=== PATIENT | female | born 1990 | race African-American/Black ===

== ENCOUNTER 2018-09-06 20:05 | Emergency (ER) | payer BC, MEDICAID ==
[~2018-09-06] VITALS: Ht 170.2 cm; Wt 122.9 kg
[~2018-09-06 20:05] MED LIST: IBUPROFEN600 MG PO; NKM; VICODIN ES 7.51 EAC1 ORAL
[2018-09-06 20:30] VITALS: BP 122/85
--- NOTE | 2018-09-06 20:52 | Emergency Room Report ---
History of Present Illness General Chief Complaint: Abdominal Pain Source: Patient Present Illness [facility] Ms. Cordero is a 28-year-old female with history of PTSD who presents with 1 week of intermittent generalized abdominal pain. She has crampy abdominal pain with tightening feeling every 2 hours. Associated with diarrhea. Positive nausea. No fever. No previous history of IBS or peptic ulcer disease. No new foods No sick contacts. Gradual onset of symptoms. She also felt a knot in the right flank right mid axillary region. Tender to touch. Last menstrual period in July Allergies: Coded Allergies: No Known Allergies (Unverified , 08/09/13) Patient History Past Medical History: see triage record Past Surgical History: Social History: Denies: smoking, drug use Last Menstrual Period: aug 22 Now: No Reviewed Nursing Documentation: PMH: Agreed; PSxH: Agreed Nursing Documentation-PMH Past Medical History: No Stated History History Of Psychiatric Problem: Yes - anxiety, deprassion, ptsd Review of Systems Constitutional: Denies: fever, malaise Respiratory: Denies: cough Cardiovascular: Denies: chest pain Gastrointestinal: Reports: abdominal pain, diarrhea, nausea All Other Systems: negative except mentioned in HPI Physical Exam Vital Signs Date Time Temp Pulse Resp B/P (MAP) Pulse Ox O2 Delivery O2 Flow Rate FiO2 09/06/18 20:17 98.8 78 16 120/87 96 Room Air Sp02 EP Interpretation: reviewed, normal General Appearance: no apparent distress, alert, GCS 15, non-toxic Head: normocephalic, atraumatic Eyes: bilateral eye normal inspection, bilateral eye PERRL ENT: hearing grossly normal, normal pharynx, no angioedema, normal voice Neck: full range of motion, supple/symm/no masses Respiratory: chest non-tender, lungs clear, normal breath sounds, speaking full sentences Cardiovascular #1: regular rate, rhythm, no edema Gastrointestinal: normal bowel sounds, non tender, soft, non-distended, no guarding, no rebound Genitourinary: normal inspection, no CVA tenderness Musculoskeletal: back normal, gait/station normal, normal range of motion, non- tender Neurologic: alert, oriented x3, responsive, motor strength/tone normal, sensory intact, speech normal Psychiatric: judgement/insight normal, memory normal, mood/affect normal, no suicidal/homicidal ideation Skin: normal color, no rash, warm/dry, well hydrated, other - no mass no hernia Lymphatic: no adenopathy Medical Decision Making Diagnostic Impression: Primary Impression: Abdominal pain ER Course Ms. Cordero presents with generalized abdominal pain and right upper quadrant pain. Differential diagnosis includes biliary colic versus irritable bowel syndrome. No evidence of peritonitis. Recommended outpatient evaluation by PCP including ultrasound gallbladder. UA and UPT neg Prescription for [place] and promethazine provided Last Vital Signs Date Time Temp Pulse Resp B/P (MAP) Pulse Ox O2 Delivery O2 Flow Rate FiO2 09/06/18 20:17 98.8 78 16 120/87 96 Room Air Status: unchanged Disposition: HOME, SELF-CARE Condition: Stable Isela Artis MD Sep 06, 2018 20:52
[2018-09-06 21:29] LABS: APPEARANCE,URINE CLEAR; BILIRUBIN, URINE NEGATIVE (NEGATIVE); GLUCOSE, URINE (UA) NEGATIVE (NEGATIVE); KETONES,URINE NEGATIVE (NEGATIVE); LEUKOCYTE ESTERASE ,URINE 2+ (NEGATIVE); NITRITE,URINE NEGATIVE (NEGATIVE); PH,URINE 5 (4.5-8.0); PROTEIN,URINE NEGATIVE (NEGATIVE); UROBILINOGEN,URINE NORMAL MG/DL (0.0-1.0)
[2018-09-06 21:34] LABS: COLOR,URINE YELLOW
[2018-09-06] MEDS ORDERED: Norco 5mg/325mg tab ORAL ONE (21:45)
[2018-09-06] MEDS ORDERED: NORCO 5-325 TA1 EACH ORAL (22:01)
[2018-09-06] MEDS ORDERED: PHENERGAN25 M1 ORAL (22:01)
[2018-09-06 22:06] VITALS: BP 124/81
== END 2018-09-06 22:16 | disposition home or self-care (01) ==
LOC: EMR 22:10
DX: R10.84 Generalized abdominal pain (principal); F32.9 Major depressive disorder, single episode, unspecified; F41.9 Anxiety disorder, unspecified; F43.10 Post-traumatic stress disorder, unspecified
CPT/HCPCS: 81003; 81025; 99283